=== PATIENT | male | born 2005 | race Caucasian/White ===

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

== ENCOUNTER 2024-07-13 22:02 | Inpatient (IN) ==
--- NOTE | 2024-07-13 22:36 | Emergency Department Note ---
Impression & Plan Suicide gesture, Suicide attempt by multiple drug overdose, Overdose on Tylenol, Depression ED Provider Note NAME: CHAD BOND AGE: 18 SEX: M : 2005 ARRIVES VIA: Walk-In INFORMANT: Patient, the patient's father ED PROVIDER(S): William Stratton DO CHIEF COMPLAINT: Depression HPI: The patient is a 18-year-old male who presented to the emergency department for an evaluation of depression and suicidal gesture. The patient took multiple pills in an attempt to kill himself this evening. He has been very depressed. His fianc of 3 years recently left and broke up with him. The patient took these medications at 9:15 PM. He took 17 tablets of Benadryl 25 mg. He also took a cold and flu medication that had Tylenol 325 mg and chlorpheniramine 2 mg. He took 9 tablets of this medication. The patient denies having any vomiting. He denies having any chest pain or difficulty breathing. ROS: See above HPI for pertinent positives & negatives. A total of 10 systems reviewed and were otherwise negative. PAST MEDICAL HISTORY: See Below PAST SURGICAL HISTORY: See Below FAMILY HISTORY: See Below SOCIAL HISTORY: See Below HOME MEDICATIONS: See Below ALLERGIES: See Below VITALS: See Below PHYSICAL EXAMINATION: GENERAL: Patient is awake alert in no acute distress patient is resting comfortably and showing no signs of anxiety EYES: The conjunctivae are clear. The pupils are round and reactive. EARS, NOSE, MOUTH AND THROAT: The nose is without any evidence of any deformity. NECK: The neck is nontender and supple. RESPIRATORY: Normal respiratory effort is noted there is no evidence of wheezing rhonchi or rales CARDIOVASCULAR: Tachycardic and regular heart sounds were noted to auscultation. There is no definite murmur. GASTROINTESTINAL: The abdomen is soft. Abdomen is nontender. MUSCULOSKELETAL/EXTREMITIES: There is no evidence of gross deformity full range of motion is noted in the hips and shoulders. SKIN: There is no obvious evidence of any rash. There are no petechiae, pallor or cyanosis noted. NEUROLOGIC: Patient is awake alert and oriented x3 strength is symmetric patellar reflexes are 2+ bilaterally PSYCH: The patient makes for eye contact. His affect is flat. The patient continues to admit to suicidal ideation. MEDICAL DECISION MAKING: The patient is a 18-year-old male who presented to the emergency department for an evaluation of depression and suicidal gesture. The patient took multiple tablets of [id number] medication. The patient was trying to harm himself. He states he wanted to . He has been very depressed over the recent break- up of him and his fiance. I discussed the patient's laboratory results with him. He was treated with IV fluids and IV Ativan. On reevaluation he was improved. Vital signs are reassuring. I discussed his condition with the Poison Control [facility]. They did recommend a 4-hour Tylenol level. They also recommended a repeat EKG. I discussed the case with the emergency department mental health case mgr. I also discussed this case with Dr. Calzada who is the night emergency physician. Triage Nursing notes reviewed. Prior medical records reviewed Vital Signs: reviewed and remarkable for no significant abnormalities Differential diagnosis: Mood disorder, infection, hypoglycemia, electrolyte abnormalities, cardiac sources, intracerebral event, toxicologic, trauma, neurologic, as well as other pathologies. ER treatment provided: See below Diagnostics interpreted by me: ECG: EKG was obtained in the emergency department. My interpretation is sinus tachycardia at 109 bpm. There is no ectopy. Incomplete right bundle branch block pattern was noted with a QTc of 455 ms. A second EKG was obtained in the emergency department. My interpretation is normal sinus rhythm at 88 bpm. There is no ectopy. There is no acute ST segment abnormalities noted. This compares similar to the initial tracing obtained in the emergency department. QTc is 438 ms. QRS duration is 98 ms. Cardiac Monitoring: An order was placed for continuous cardiac monitoring. The monitor shows a rate of 83 bpm with sinus rhythm. Laboratory studies: As stated above and show below. Imaging studies: See below. Radiographic imaging was reviewed by myself Consultation(s): I discussed this case with the Poison Control Center. They recommend EKGs every 4-6 hours. They recommend observing the patient for 6 to 8 hours for the benzodiazepine and repeating a Tylenol level again in 4 hours after the injection which would be 0115 tomorrow a.m. ED COURSE: The case was signed out to Dr. Calzada at change of shift. Please see her note for continuation of care and further disposition. I discussed this case with the emergency departmentwi health case mgr. Additional history was obtained from patient's father. Past Med/Surg History Problem List (Updated 07/14/24 @ 00:55 by William Stratton DO) Depression (Acute) Overdose on Tylenol (Acute) Suicide attempt by multiple drug overdose (Acute) Suicide gesture (Acute) Shoulder dislocation Medical History No pertinent past medical history Surgical History Status post labral repair of shoulder 09/02- right [place] teeth removed History of circumcision Family History Mother No problems noted. Father No problems noted. Family/Other Adopted Other Unknown family medical history Social History Smoking Status: Never smoker Second Hand Exposure: No; Do You Dip or Chew Tobacco: No; Hx Alcohol Use: No Hx Substance Use: No Preferred Language: Setswana Communication Ability: Effective Communication Ability Comment: PHONE INTERVIEW WITH NICOL GILMORE Visual Impairment: No Limitations Hearing Ability: Normal [employer] Required: No Beliefs That Will Affect Care: None Current Living Situation: Family Current Living Situation Comment: Mom, dad, brother, 4 adopted siblings Feels Safe at Home: Yes Childhood Exposure to Second-Hand Smoke: No Dental Care, Regularly: Yes Gender Identity: Male Assistive Devices: None Allergies Allergies Allergy/AdvReac Type Severity Reaction Status Date / Time No Known Allergies Allergy Verified 08/28/21 08:50 Home Meds Home Medications Medication Instructions Recorded Confirmed sertraline 50 mg tablet 50 mg PO DAILY 01/12/23 01/12/23 Results & Data (ED) Vital Signs Vital Signs - 24 hr 07/13/24 22:03 07/13/24 22:36 07/13/24 22:40 Temperature 36.8 C Temperature Source Temporal Artery Scan Pulse Rate 125 H 76 Pulse Rate [Finger] Pulse Rhythm Regular Pulse Rhythm [Finger] Pulse Strength [Finger] Respiratory Rate 19 Respiratory Effort / Characteristics Non-Labored Respiratory Depth Normal Respiratory Pattern Blood Pressure 128/80 Blood Pressure [Right Arm] Blood Pressure Mean 96 Blood Pressure Mean [Right Arm] Blood Pressure Position [Right Arm] Pulse Oximetry 100 98 Oxygen Delivery Method Room Air Room Air Sepsis Recent Fever Within 48 Hours No Sepsis New/Unexplained Change in Mental Status No Sepsis Action Taken by Nursing No Action Required 07/14/24 00:00 Temperature Temperature Source Pulse Rate Pulse Rate [Finger] 77 Pulse Rhythm Pulse Rhythm [Finger] Regular Pulse Strength [Finger] Normal Respiratory Rate 20 Respiratory Effort / Characteristics Non-Labored Spontaneous Respiratory Depth Normal Respiratory Pattern Regular Blood Pressure Blood Pressure [Right Arm] 126/80 Blood Pressure Mean Blood Pressure Mean [Right Arm] 95 Blood Pressure Position [Right Arm] Lying Pulse Oximetry 100 Oxygen Delivery Method Room Air Sepsis Recent Fever Within 48 Hours Sepsis New/Unexplained Change in Mental Status Sepsis Action Taken by [facility] Medications Current Medication List: was personally reviewed by me Laboratory Data Attestation: I reviewed the patient's lab results. 07/13/24 23:03 07/13/24 22:32 Lab Results 07/13/24 07/13/24 Range/Units 22:32 23:03 WBC Cancelled 7.68 RBC Cancelled 4.90 Hgb Cancelled 14.6 Hct Cancelled 41.4 L MCV Cancelled 84.5 MCH Cancelled 29.8 MCHC Cancelled 35.3 RDW Std Deviation Cancelled 37.6 RDW Coeff of Lianne Cancelled 12.4 Plt Count Cancelled 293 MPV Cancelled 9.9 Immature Gran % (Auto) Cancelled 0.3 Neut % (Auto) Cancelled 68.6 Lymph % (Auto) Cancelled 21.1 Baker % (Auto) Cancelled 7.6 Eos % (Auto) Cancelled 1.2 Baso % (Auto) Cancelled 1.2 Neut # (Auto) Cancelled 5.28 Lymph # (Auto) Cancelled 1.62 Baker # (Auto) Cancelled 0.58 Eos # (Auto) Cancelled 0.09 Baso # (Auto) Cancelled 0.09 Immature Gran # (Auto) Cancelled 0.02 Absolute Nucleated RBC Cancelled Nucleated RBC % (auto) Cancelled Neutrophils % (Manual) Cancelled Band Neutrophils % Cancelled Lymphocytes % (Manual) Cancelled Prolymphocyte % Cancelled Reactive Lymphs % (Man) Cancelled Monocytes % (Manual) Cancelled Eosinophils % (Manual) Cancelled Basophils % (Manual) Cancelled Metamyelocytes % (Man) Cancelled Myelocytes % (Man) Cancelled Promyelocytes % (Man) Cancelled Blast Cells % (Manual) Cancelled Plasma Cell % (Manual) Cancelled Other Cells % Cancelled Nucleated RBC % Cancelled Neutrophils # (Manual) Cancelled Band Neutrophils # Cancelled Total Absolute Neuts Cancelled Lymphocytes # (Manual) Cancelled Prolymphocyte # Cancelled Reactive Lymphs # Cancelled Total Abs Lymphocytes Cancelled Monocytes # (Manual) Cancelled Eosinophils # (Manual) Cancelled Basophils # (Manual) Cancelled Metamyelocytes # (Man) Cancelled Myelocytes # (Manual) Cancelled Promyelocytes # (Man) Cancelled Blast Cells # (Man) Cancelled Plasma Cell # (Manual) Cancelled Other Cells # Cancelled Nucleated RBCs # (Man) Cancelled Hypersegmented Neuts Cancelled Hyposegmented Neuts Cancelled Hypogranular Neuts Cancelled Large Granular Lymphs Cancelled # Lrg Granular Lymphs Cancelled Hairy Cells Cancelled Smudge Cells Cancelled Toxic Granulation Cancelled Toxic Vacuolation Cancelled Dohle Bodies Cancelled Dick Rods Cancelled Platelet Estimate Cancelled Hypogranular Platelets Cancelled Giant Platelets Cancelled Platelet Satelliting Cancelled RBC Morphology Cancelled Polychromasia Cancelled Hypochromasia Cancelled Poikilocytosis Cancelled Basophilic Stippling Cancelled Anisocytosis Cancelled Microcytosis Cancelled Macrocytosis Cancelled Spherocytes Cancelled Pappenheimer Bodies Cancelled Sickle Cells Cancelled Target Cells Cancelled Tear Drop Cells Cancelled Ovalocytes Cancelled Stomatocytes Cancelled Re[place] Bodies Cancelled Echinocytes Cancelled Acanthocytes (Spur) Cancelled Rouleaux Cancelled RBC Agglutinates Cancelled Schistocytes Cancelled Sezary Cell Cancelled PT Cancelled 11.8 INR Cancelled 1.1 Sodium 138 (136-145) mmol/L Potassium 3.6 (3.5-5.1) mmol/L Chloride 103 (98-107) mmol/L Carbon Dioxide 27 (21-32) mmol/L Anion Gap 8 (3-11) BUN 14 (6-23) mg/dl Creatinine 0.97 (0.6-1.4) mg/dl Est Cr Clr Drug Dosing 141.2 ml/min eGFR 114.61 BUN/Creatinine Ratio 14.4 (10-20) Glucose 100 H (70-99(Fasting)) mg/dl Calcium 9.7 (8.6-10.3) mg/dl Magnesium 2.1 (1.7-2.4) mg/dl Total Bilirubin 0.9 (0.2-1.0) mg/dl AST 24 (13-39) U/L ALT 17 (7-52) U/L Alkaline Phosphatase 83 (34-104) U/L Total Creatine Kinase 86 (30-223) U/L Troponin I High Sens < 2.3 (0-20) pg/ml Total Protein 8.5 H (6.0-8.3) gm/dl Albumin 4.7 (3.4-5.0) gm/dl Globulin 3.8 (2.5-4.0) gm/dl Albumin/Globulin Ratio 1.2 (0.9-2) Salicylates < 3.0 L (3.0-30) mg/dl Acetaminophen 31 H (10-30) ug/ml Ethyl Alcohol mg/dL < 10.0 (<10.0) mg/dl SARS-CoV-2, RNA, NAAT NEGATIVE (NEGATIVE) Blood Parasites ID Cancelled Administered Medications Discontinued Medications Sodium Chloride (Nss) 1,000 mls @ 999 mls/hr IV .Q1H1M ONE Stop: 07/13/24 23:28 Last Infusion: 07/14/24 00:13 Dose: Infused Documented By: Admin: 07/13/24 22:49 Dose: 999 mls/hr Documented By: RILEY Lorazepam (Lorazepam 2 Mg/1 Ml Vial) 0.5 mg IV NOW STA Stop: 07/13/24 22:29 Last Admin: 07/13/24 22:49 Dose: 0.5 mg Documented By: RILEY Discharge Plan Visit Data Chief Complaint: Overdose (Intentional) Stated Complaint: OVERDOSE ED Provider: William Stratton Discharge Problem: Suicide gesture, Suicide attempt by multiple drug overdose, Overdose on Tylenol, Depression Patient Disposition: Still a Patient Forms Stand Alone Forms: [facility], Suicide Prevention Resources Prescriptions Prescriptions: No Action sertraline 50 mg tablet 50 mg PO DAILY Referrals Referrals: PCP,NO [Primary Care Provider] - Discharge Problem: Suicide gesture Qualifiers: Encounter type: initial encounter Qualified Code(s): X83.8XXA - Intentional self-harm by other specified means, initial encounter Suicide attempt by multiple drug overdose Qualifiers: Encounter type: initial encounter Qualified Code(s): T50.912A - Poisoning by multiple unspecified drugs, medicaments and biological substances, intentional self-harm, initial encounter Overdose on Tylenol Qualifiers: Encounter type: initial encounter Injury intent: intentional self-harm Q ualified Code(s): T39.1X2A - Poisoning by 4-Aminophenol derivatives, intentional self-harm, initial encounter Depression Qualifiers: Depression Type: unspecified Qualified Code(s): F32.A - Depression, unspecified
[2024-07-13] MEDS: SODIUM CHLORIDE 0.9% 1,000 ML IV ONE (22:49)
[2024-07-13] MEDS: LORazepam 2 MG/1 ML VIAL IV STA (22:49)
[2024-07-13 23:08] LABS: Alanine Aminotransferase 17 U/L (7-52); Albumin Globulin Ratio 1.2 (0.9-2); Albumin Level 4.7 gm/dl (3.4-5.0); Alkaline Phosphatase 83 U/L (34-104); Anion Gap 8 (3-11); Aspartate Aminotransferase 24 U/L (13-39); BUN Creatinine Ratio 14.4 (10-20); Bilirubin,Total 0.9 mg/dl (0.2-1.0); Blood Urea Nitrogen 14 mg/dl (6-23); Calcium 9.7 mg/dl (8.6-10.3); Carbon Dioxide 27 mmol/L (21-32); Chloride 103 mmol/L (98-107); Creatine Kinase 86 U/L (30-223); Creatinine Clr Calc Pharmacy 141.2 ml/min; Globulin 3.8 gm/dl (2.5-4.0); Glucose 100 mg/dl (70-99(Fasting)); Magnesium 2.1 mg/dl (1.7-2.4); Potassium 3.6 mmol/L (3.5-5.1); Sodium 138 mmol/L (136-145); Total Protein 8.5 gm/dl (6.0-8.3)
[2024-07-13 23:14] LABS: Troponin I High Sensitivity < 2.3 pg/ml (0-20)
[2024-07-13 23:19] LABS: Basophils # (auto) 0.09 K/uL (0.00-0.20); Basophils % (auto) 1.2 %; Eosinophils # (auto) 0.09 K/uL (0.00-0.50); Eosinophils % (auto) 1.2 %; Hematocrit (blood only) 41.4 % (42.0-52.0); Hemoglobin 14.6 g/dl (14.0-18.0); Immature Granulocytes # (auto) 0.02 K/uL (0.01-0.20); Immature Granulocytes % (auto) 0.3 %; Lymphocytes # (auto) 1.62 K/uL (1.20-3.40); Lymphocytes % (auto) 21.1 %; Mean Corpuscular Hemoglobin 29.8 pg (25.0-34.0); Mean Corpuscular Hgb Conc 35.3 g/dL (32.0-36.0); Mean Corpuscular Volume 84.5 fL (80.0-100.0); Mean Platelet Volume 9.9 fL (9.4-12.4); Monocytes # (auto) 0.58 K/uL (0.11-0.59); Monocytes % (auto) 7.6 %; Neutrophils # (auto) 5.28 K/uL (1.40-6.50); Neutrophils % (auto) 68.6 %; Platelet Count 293 K/uL (130-400); RDW Coefficient of Variation 12.4 % (11.5-14.5); RDW Standard Deviation 37.6 fL (36.4-46.3); White Blood Count 7.68 K/ul (4.8-10.8)
[2024-07-13 23:24] LABS: Acetaminophen 31 ug/ml (10-30); Salicylate < 3.0 mg/dl (3.0-30)
[2024-07-14 00:07] LABS: INR 1.1 (0.9-1.1); Prothrombin Time 11.8 Seconds (9.0-12.0)
[2024-07-14 01:33] LABS: Appearance Urine Clear (Clear); Bilirubin Urine Negative (Negative); Blood Urine Negative (Negative); Color Urine Yellow; Glucose Urine UA Negative (Negative); Ketones Urine Trace (Negative); Leukocyte Esterase Urine Negative (Negative); Nitrite Urine Negative (Negative); Protein Urine Negative (Negative); Specific Gravity Urine 1.009 (1.000-1.030); Urobilinogen Urine Negative (Negative); pH Urine 6.5 (4.5-7.5)
[2024-07-14 01:56] LABS: Amphetamines+Metham, Urine Neg (Neg); Barbiturates, Urine Neg (Neg); Benzodiazepine, Urine Neg (Neg); Cocaine, Urine Neg (Neg); Fentanyl, Urine Neg (Neg); MDMA (Ecstacy), Urine Neg (Neg); Marijuana, Urine Neg (Neg); Methadone, Urine Neg (Neg); Opiate, Urine Neg (Neg); Phencyclidine, Urine Neg (Neg)
--- NOTE | 2024-07-14 04:27 | Emergency Department Note ---
ED Visit Note Patient signed out to me at change of shift from Dr. Stratton. Patient here following attempted overdose due to suicidality. Patient hemodynamically stable throughout. Poison control did recommend several hours of observation and repeat labs. Following repeat labs poison control called back to check on the patient and felt he could be medically cleared. Patient was seen and evaluated by Jasmin of case management and was in agreement with plan for inpatient mental health treatment. Patient evaluated by [facility]. and accepted there for further inmi tient treatment. 201 signed by me. .
[2024-07-14] MEDS ORDERED: ACETAMINOPHEN 325 MG TAB PO PRN (04:54)
[2024-07-14] MEDS ORDERED: BISMUTH SUBSALICYLATE 262 MG CHEW PO PRN (04:54)
[2024-07-14] MEDS ORDERED: MAGNESIUM HYDROXIDE SUSP 30 ML UDC PO PRN (04:54)
[2024-07-14] MEDS ORDERED: ALUMINUM/MAGNESIUM SUSP 30 ML UDC PO PRN (04:54)
[2024-07-14] MEDS ORDERED: SODIUM CHLORIDE 0.65% NA SOLN 45 ML (OCEAN) PRN (04:54)
[2024-07-14] MEDS ORDERED: hydrOXYzine HCl 25 MG TAB PO PRN ×2 (04:54)
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
[2024-07-14] MEDS: buPROPion XL 150 MG TABCR PO SCH (12:38)
--- NOTE | 2024-07-14 14:32 | Electrocardiogram Report ---
Test Reason : Blood Pressure : */* mmHG Vent. Rate : 109 BPM Atrial Rate : 109 BPM P-R Int : 146 ms QRS Dur : 96 ms QT Int : 338 ms P-R-T Axes : * 140 129 degrees QTcB Int : 455 ms Suspect arm lead reversal, interpretation assumes no reversal Sinus tachycardia Left posterior fascicular block Abnormal ECG No previous ECGs available Confirmed by William Santoyo ([id number]) on 07/14/2024 2:32:08 PM Referred By: REFERRED SELF Confirmed By: William Santoyo
--- NOTE | 2024-07-14 14:42 | Electrocardiogram Report ---
Test Reason : Blood Pressure : */* mmHG Vent. Rate : 88 BPM Atrial Rate : 88 BPM P-R Int : 160 ms QRS Dur : 98 ms QT Int : 362 ms P-R-T Axes : 82 89 51 degrees QTcB Int : 438 ms Normal sinus rhythm Normal ECG When compared with ECG of 13-Jul-2024 22:24, (unconfirmed) Left posterior fascicular block is no longer Present Confirmed by William Santoyo ([id number]) on 07/14/2024 2:41:55 PM Referred By: REFERRED SELF Confirmed By: William Santoyo
[2024-07-15 06:19] VITALS: RESP 16
--- NOTE | 2024-07-15 10:26 | Psychiatric Progress Note ---
Date of Service July 15, 2024 Impression / Recommendations Impression 18-year-old man with a 5-6 year history of untreated depressive symptoms who presented to the ED after an impulsive overdose on Benadryl and Tylenol following his fiance leaving him in the context of multiple psychosocial stressors. Diagnostically consistent with major depressive disorder. A: Tolerating initiation of Wellbutrin with stable sleep, no evidence for irritability and improving mood. Continue to monitor closely for ongoing improvement given serious of attempt prior to admission. Overall, I spent a total of 35 minutes on this case including meeting with the patient, reviewing the chart, nursing report, multidisciplinary team meeting, orders, and documentation. (1) Overdose on Tylenol: (2) Suicide attempt by multiple drug overdose: (3) Depression: Plan 07/15/2024: -Continue current medications and tx plan 07/14/2024: The patient was admitted to the [facility] ([facility]) on q15 min checks (behavioral with suicide precautions) for safety. The patient will participate in group, recreational, and milieu therapies and will be offered additional individual and family sessions as clinically appropriate. 1. Recommend continued voluntary psychiatric hospitalization for safety, stabilization, and treatment initiation. Discuss potential benefits, including being away from stressors, having support/resources available, and medication monitoring. 2. Discussed medication treatment options in detail. Discussed risks, benefits and alternatives. Patient would like to start and consented to start bupropion XL 150mg daily for depression and monitor for side effects. Educated about possible side effects (insomnia if taken late in the day, headache, nausea, and lowered seizure threshold). Check blood pressure regularly. 3. Encourage individual, group and milieu therapy to process recent stressors, losses, and emotions in a healthy way. Frame therapy as a way to build coping skills and resilience. 4. Ensure a safe discharge plan, including staying with family temporarily and removing access to guns or other lethal means. 5. Provide crisis resources, including the [employer] [facility], and encourage reaching out for help in the future if needed. 6. Arrange a follow-up appointment with an outpatient psychiatrist within 1 week of discharge for ongoing medication management and safety monitoring. Suicide Risk Level Suicide Risk Level: Moderate (q15 min suicide checks) (s/p overdose attempt but now denying SI, feels safe in the hospital) Risk Factors Assessment Male: Yes : Yes Do You Have Access To A Gun?: Yes (Father secured guns) Health Problems: No Mental Health Diagnoses: Yes Substance Use Disorders: No Previous Attempt: No Family History of Suicide: No Previous Psychiatric Hospitalization: No Hopelessness: No Protective Factors Assessment Pent[employer]ostalism Beliefs: Yes : Yes Responsible for Young Children: No Employed: Yes ([employer]) Stable Relationships: No Supportive Family: Yes Good Rapport with Provider: Yes Absence of Any Risk Factors Above: No Interval History Identifying Information CHAD BOND is a 18-year-old M who currently lives with his fiancee in [place], [place]. Pt has no prior psychiatric diagnoses. He was admitted on 07/14/24 04:38 on a 201 voluntary commitment for suicide attempt via polypharmacy overdose. Chief Complaint "Really good actually". Review of Systems Sleep Information Total Hours of Sleep: 8 Sleep Comments: new admit Meal Information Percent Meal Consumed - Breakfast: 100 Percent Meal Consumed - Lunch: 100 Percent Meal Consumed - Dinner: 100 Subjective Subjective Patient was seen & assessed and interval progress reviewed with nursing. Slept well. Attending groups. Today reports his mood is improving and feels this is due to the Wellbutrin and "there's less fog" and he feels he has a better mental handle on working on his mood symptoms. Reflects that he was increasing irritable and with low mood recently leading to his fiancee breaking up with him. Following his attempt he is now reflecting on his mood symptoms and feels this is a bit of a wake up call to address his symptoms and think about how to move forward. He denies current SI, is glad to be alive. Physical Exam Psychiatric Orientation: alert, oriented x 3 and cooperative Apperance: appropriately dressed, appropriately groomed and appeared stated age Eye Contact: good eye contact Motor Behavior: steady gait and station and no abnormal motor movements Speech: normal rate/rhythm/volume of speech Affect: + constricted affect Mood: + depressed mood (but improving) Thought Process: goal directed thought process, linear/logical thought process and clear/coherent thought process Thought Content: reality based without delusions Suicidal Thoughts: denies suicidal thoughts (but s/p serious attempt), denies suicidal plan and denies suicidal intent Homicidal Thoughts: denies homicidal thoughts, denies homicidal plan and denies homicidal intent Hallucinations: no auditory hallucinations and no visual hallucinations Cognition: recent memory grossly intact, remote memory grossly intact, attention grossly intact and language grossly intact Estimated Intelligence: average estimated intelligence Insight: + fair insight Judgment: + limited judgement Vital Signs (Past 24 Hours) Last Vital Signs Temp 36.5 C 07/15/24 06:00 Pulse 79 07/15/24 06:19 Resp 16 07/15/24 06:00 BP 106/61 07/15/24 06:19 Pulse Ox 99 07/15/24 06:00 O2 Del Method Room Air 07/15/24 06:00 Results & Data ([facility]) Current Inpatient Medications Current Inpatient Medications: Current Inpatient Medications Acetaminophen (Acetaminophen 325 Mg Tab) 650 mg PO Q4H PRN PRN Reason: Headache or Minor Fever Stop: 08/13/24 04:53 Al Hydrox/Mg Hydrox/Simethicone (Aluminum/Magnesium Susp 30 Ml Udc) 30 ml PO Q4H PRN PRN Reason: GI Upset Stop: 08/13/24 04:53 Bismuth Subsalicylate (Bismuth Subsalicylate 262 Mg Chew) 2 tab PO Q30M PRN PRN Reason: Loose Stool/Diarrhea Stop: 08/13/24 04:53 Bupropion HCl (Bupropion Xl 150 Mg Tabcr) 150 mg PO QAM NEGAR Stop: 08/13/24 12:29 Last Admin: 07/15/24 08:43 Dose: 150 mg Hydroxyzine HCl (Hydroxyzine Hcl 25 Mg Tab) 50 mg PO HSZ PRN PRN Reason: Insomnia Stop: 08/13/24 04:53 Hydroxyzine HCl (Hydroxyzine Hcl 25 Mg Tab) 25 mg PO Q4H PRN PRN Reason: Anxiety Stop: 08/13/24 04:53 Magnesium Hydroxide (Magnesium Hydroxide Susp 30 Ml Udc) 30 ml PO DAILY PRN PRN Reason: Constipation Stop: 08/13/24 04:53 Sodium Chloride (Sodium Chloride 0.65% Na Soln 45 Ml ([place])) 1 - 2 sprays NA PRN PRN PRN Reason: Nasal Dryness/Congestion Stop: 08/13/24 04:53 Mental Health & Subst Abuse Tx Therapist Name of Therapist: None [facility] Name of [facility]: None Post Discharge Appointments Primary Care Physician Name Of Family Doctor/PCP: none (1) Overdose on Tylenol Encounter type: initial encounter Injury intent: intentional self-harm Qualified Code(s): T39.1X2A - Poisoning by 4-Aminophenol derivatives, intentional self-harm, initial encounter (2) Suicide attempt by multiple drug overdose Encounter type: initial encounter Qualified Code(s): T50.912A - Poisoning by multiple unspecified drugs, medicaments and biological substances, intentional self-harm, initial encounter (3) Depression Depression Type: unspecified Qualified Code(s): F32.A - Depression, unspecified
--- NOTE | 2024-07-16 09:17 | Psychiatric Progress Note ---
Date of Service July 16, 2024 Impression / Recommendations Impression 18-year-old man with a 5-6 year history of untreated depressive symptoms who presented to the ED after an impulsive overdose on Benadryl and Tylenol following his fiance leaving him in the context of multiple psychosocial stressors. Diagnostically consistent with major depressive disorder. A: Mood improving, using new coping skills, tolerating Wellbutrin. Still needs aftercare/disposition planning and support meeting. Overall, I spent a total of 25 minutes on this case including meeting with the patient, reviewing the chart, nursing report, multidisciplinary team meeting, orders, and documentation. (1) Overdose on Tylenol: (2) Suicide attempt by multiple drug overdose: (3) Depression: Plan 07/16/2024: Continue current medications and tx plan 07/15/2024: -Continue current medications and tx plan 07/14/2024: The patient was admitted to the [facility] ([facility]) on q15 min checks (behavioral with suicide precautions) for safety. The patient will participate in group, recreational, and milieu therapies and will be offered additional individual and family sessions as clinically appropriate. 1. Recommend continued voluntary psychiatric hospitalization for safety, stabilization, and treatment initiation. Discuss potential benefits, including being away from stressors, having support/resources available, and medication monitoring. 2. Discussed medication treatment options in detail. Discussed risks, benefits and alternatives. Patient would like to start and consented to start bupropion XL 150mg daily for depression and monitor for side effects. Educated about possible side effects (insomnia if taken late in the day, headache, nausea, and lowered seizure threshold). Check blood pressure regularly. 3. Encourage individual, group and milieu therapy to process recent stressors, losses, and emotions in a healthy way. Frame therapy as a way to build coping skills and resilience. 4. Ensure a safe discharge plan, including staying with family temporarily and removing access to guns or other lethal means. 5. Provide crisis resources, including the [employer] Lif[facility], and encourage reaching out for help in the future if needed. 6. Arrange a follow-up appointment with an outpatient psychiatrist within 1 week of discharge for ongoing medication management and safety monitoring. Suicide Risk Level Suicide Risk Level: Moderate (q15 min suicide checks) (s/p overdose attempt but now denying SI, feels safe in the hospital) Risk Factors Assessment Male: Yes : Yes Do You Have Access To A Gun?: Yes (Father secured guns) Health Problems: No Mental Health Diagnoses: Yes Substance Use Disorders: No Previous Attempt: No Family History of Suicide: No Previous Psychiatric Hospitalization: No Hopelessness: No Protective Factors Assessment [employer] Beliefs: Yes : Yes Responsible for Young Children: No Employed: Yes ([employer]) Stable Relationships: No Supportive Family: Yes Good Rapport with Provider: Yes Absence of Any Risk Factors Above: No Interval History Identifying Information CHAD BOND is a 18-year-old M who currently lives with his fiancee in [place], [place]. Pt has no prior psychiatric diagnoses. He was admitted on 07/14/24 04:38 on a 201 voluntary commitment for suicide attempt via polypharmacy overdose. Chief Complaint "Good". Review of Systems Sleep Information Total Hours of Sleep: 7.75 Meal Information Percent Meal Consumed - Breakfast: 100 Percent Meal Consumed - Lunch: 100 Percent Meal Consumed - Dinner: 100 Subjective Subjective Patient was seen & assessed and interval progress reviewed with nursing. Attending groups, rated his mood as "hopeful". Slept well. This morning notes he felt a little cooped-up but did some exercises and then felt good. Tolerated morning dose of Wellbutrin without any side effects. Feels it is helping his mood. Hopeful he can discharge tomorrow pending aftercare disposition planning and support meeting. Physical Exam Psychiatric Orientation: alert, oriented x 3 and cooperative Apperance: appropriately dressed, appropriately groomed and appeared stated age Eye Contact: good eye contact Motor Behavior: steady gait and station and no abnormal motor movements Speech: normal rate/rhythm/volume of speech Affect: euthymic affect Mood: + depressed mood (continues to improve) Thought Process: goal directed thought process, linear/logical thought process and clear/coherent thought process Thought Content: reality based without delusions Suicidal Thoughts: denies suicidal thoughts (but s/p serious attempt), denies suicidal plan and denies suicidal intent Homicidal Thoughts: denies homicidal thoughts, denies homicidal plan and denies homicidal intent Hallucinations: no auditory hallucinations and no visual hallucinations Cognition: recent memory grossly intact, remote memory grossly intact, attention grossly intact and language grossly intact Estimated Intelligence: average estimated intelligence Insight: + fair insight Judgment: + fair judgement Vital Signs (Past 24 Hours) Last Vital Signs Temp 36.6 C 07/16/24 06:00 Pulse 69 07/16/24 06:44 Resp 16 07/16/24 06:00 BP 104/67 07/16/24 06:44 Pulse Ox 100 07/16/24 06:00 O2 Del Method Room Air 07/16/24 06:00 Results & Data ([facility]) Current Inpatient Medications Current Inpatient Medications: Current Inpatient Medications Acetaminophen (Acetaminophen 325 Mg Tab) 650 mg PO Q4H PRN PRN Reason: Headache or Minor Fever Stop: 08/13/24 04:53 Al Hydrox/Mg Hydrox/Simethicone (Aluminum/Magnesium Susp 30 Ml Udc) 30 ml PO Q4H PRN PRN Reason: GI Upset Stop: 08/13/24 04:53 Bismuth Subsalicylate (Bismuth Subsalicylate 262 Mg Chew) 2 tab PO Q30M PRN PRN Reason: Loose Stool/Diarrhea Stop: 08/13/24 04:53 Bupropion HCl (Bupropion Xl 150 Mg Tabcr) 150 mg PO QAM NEGAR Stop: 08/13/24 12:29 Last Admin: 07/16/24 08:48 Dose: 150 mg Hydroxyzine HCl (Hydroxyzine Hcl 25 Mg Tab) 50 mg PO HSZ PRN PRN Reason: Insomnia Stop: 08/13/24 04:53 Hydroxyzine HCl (Hydroxyzine Hcl 25 Mg Tab) 25 mg PO Q4H PRN PRN Reason: Anxiety Stop: 08/13/24 04:53 Magnesium Hydroxide (Magnesium Hydroxide Susp 30 Ml Udc) 30 ml PO DAILY PRN PRN Reason: Constipation Stop: 08/13/24 04:53 Sodium Chloride (Sodium Chloride 0.65% Na Soln 45 Ml ([place])) 1 - 2 sprays NA PRN PRN PRN Reason: Nasal Dryness/Congestion Stop: 08/13/24 04:53 Mental Health & Subst Abuse Tx Therapist Name of Therapist: None Intensive Care Anaesthetist Name of Intensive Care Anaesthetist: None Post Discharge Appointments Primary Care Physician Name Of Family Doctor/PCP: none (1) Overdose on Tylenol Encounter type: initial encounter Injury intent: intentional self-harm Qualified Code(s): T39.1X2A - Poisoning by 4-Aminophenol derivatives, intentional self-harm, initial encounter (2) Suicide attempt by multiple drug overdose Encounter type: initial encounter Qualified Code(s): T50.912A - Poisoning by multiple unspecified drugs, medicaments and biological substances, intentional self-harm, initial encounter (3) Depression Depression Type: unspecified Qualified Code(s): F32.A - Depression, unspecified
[2024-07-17 06:55] VITALS: BP 115/74; PULSE 73; TEMP 97.4; O2SAT 98
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
== END 2024-07-17 10:43 | disposition home or self-care (01) | DRG 881 ==
LOC: ED 22:02 → 3S 07-14 04:33 → SUATTDRO 07-14 04:38 → 3S 07-14 04:38